=== PATIENT | female | born 1985 | race Caucasian/White ===

== ENCOUNTER 2016-03-22 09:23 | Inpatient (IN) | payer OTHER ==
[~2016-03-22] VITALS: Ht 160 cm; Wt 66.2 kg
[~2016-03-22 09:23] MED LIST: AMOX500C2 PO; OXYC1TAB24 PO; [UNRECOGNIZED DRUG - OTHER] PO
[2016-03-22] MEDS ORDERED: Hemorrhage Kit, Post Partum XX ONE ×2 (10:20→18:45)
[2016-03-22] MEDS ORDERED: Lactated Ringer's 1,000 ML IV PRN (10:20)
[2016-03-22] MEDS ORDERED: fentaNYL-PF 50 mCg/mL 2 mL Inj IVPUSH PRN (10:20)
[2016-03-22] MEDS ORDERED: Oxytocin 10 Unit/mL Inj IM PRN ×2 (10:20→18:45)
[2016-03-22] MEDS ORDERED: Sodium Chloride LOK Flush 10 mL Syringe IVFLUSH PRN (10:20)
[2016-03-22] MEDS ORDERED: Oxytocin 30 Units/500 mL LR 30 UNITS in IV Premix 1 EACH IV PRN ×2 (10:20→18:45)
[2016-03-22] MEDS ORDERED: Carboprost 250 mCg/mL Inj IM PRN ×2 (10:20→18:45)
[2016-03-22] MEDS ORDERED: Methylergonovine 0.2 mg/mL Inj IM PRN ×2 (10:20→18:45)
[2016-03-22 10:33] LABS: Mean Corpuscular Hemoglobin 30.8 pg (27.0-35.0); Mean Corpuscular Volume 90.3 fL (81-100)
[2016-03-22] MEDS ORDERED: fentaNYL 2 mCg/mL-Bupivicaine 0.125% 100 mL Premix EPIDURAL ONE (14:01)
[2016-03-22] MEDS ORDERED: Lactated Ringer's 500 ML IV ONE (14:04)
[2016-03-22] MEDS ORDERED: Phenylephrine/NS-PF 100 mCg/mL 5 mL Syringe IVPUSH PRN (14:05)
[2016-03-22] MEDS ORDERED: Atropine 1 mg/10 mL (Code) Syringe IVPUSH PRN (14:05)
[2016-03-22] MEDS ORDERED: Ondansetron 2 mg/mL 2 mL Inj IVPUSH PRN (14:05)
[2016-03-22] MEDS ORDERED: EPHEDrine Sulfate 50 mg/mL Inj IVPUSH PRN (14:05)
[2016-03-22] MEDS ORDERED: fentaNYL 2 mCg/mL-Bupiv 0.125% 100 ML EPIDURAL SCH (14:05)
--- NOTE | 2016-03-22 14:05 | PCM.HPANE ---
Patient Data Surgeon Admitting Provider:Brittany Woods MD Attending Provider:Brittany Woods MD Primary Care Physician:Nopcp Other Provider: Reason for Visit Early Labor EARLY LABOR Ht/WT & BMI Body Mass Index Allergies Coded Allergies: tramadol (Verified Allergy, Unknown, 03/22/16) seizures hydrocodone (Verified Adverse Reaction, Unknown, N/V, 03/22/16) Diabetes History Hx Diabetes?: No Medications Active Scripts Amoxicillin 500 Mg [id number] Mg PO TID 7 Days Ref 0 Prov:Diony House MD 12/01/15 oxyCODONE-Acetaminophen 5-325 mg 1 Each Tablet1 Tab PO Q6H PRN For Pain #10 TABLET Prov:Diony House MD 12/01/15 Reported Medications [flintstone Vits] No Conflict Check PO DAILY #1 Ref 0 07/28/08 History Hx of Heart Problems?: No Cardiovascular History: Denies:: Congestive Heart Failure Hypertension Hx of Respiratory Problem?: No Respiratory History: Denies:: Tuberculosis Hx Neurologic Problems?: No Hx of GI Problems?: Yes Gastrointestinal History: Positive for:: Heartburn Female Hx: Positive for:: Currently Hx Surgeries?: No Hx Diabetes: No Hx Alcohol Use: NoHx Substance Use: Yes Smoking Status: Current Every Day Smoker Have You Smoked inLast 12 mo: No Stop/Bang Treated for Sleep Apnea?: No Do You Have a CPAP Machine?: No RAE Risk Assessment: Low Risk, <3 Yes Risk Assessment Category Category 1A: Patient has history of documented sleep apnea, and HAS NOT received any narcotic, sedative or anesthesia administration during this stay. Category 1B: Patient has history of documented sleep apnea, and HAS received any narcotic , sedative or anesthesia administration during this stay Category 2: Patient has SUSPECTED Obstructive Sleep Apnea, and HAS received any narcotic , sedative or anesthesia administration during this stay. Category 3: Patient has SUSPECTED Obstructive Sleep Apnea and HAS NOT received narcotic, sedative or anesthesia administration during this stay. Category 4: Outpatient in Procedural Areas with known sleep apnea or who screen positive for High Risk via the STOP/BANG questionnaire. Exam Exam General Appearance: Oriented X3 HEENT/AIRWAY: MP 2 Lungs: Normal Air Movement Heart: Regular Rate/Rhythm Meds/Labs/Diagnostics Labs Test 03/22/16 10:10 White Blood Count 13.2th/mm3 (3.8-10.1) Red Blood Count 4.54mil/mm3 (3.90-5.20) Hemoglobin 14.0g/dL (12.0-15.6) Hematocrit 41.0% (35.0-46.0) Mean Corpuscular Volume 90.3fL (81-100) Mean Corpuscular Hemoglobin 30.8pg (27.0-35.0) Mean Corpuscular Hemoglobin Concent 34.1% (32.0-37.0) Red Cell Distribution Width 13.8% (12.3-15.4) Platelet Count 297bil/L (150-400) Plan Impression Patient chart reviewed, patient interviewed and anesthestic plan with risks, benefits, and alternatives discussed, and informed consent obtained. ASA Physical Status: ASA2 Mod Systemic Disease Anesthetic Plan: Epidural Bene/Risks/Altern/Consents: Yes HP Complete Prior to Induction: Yes Kendrick Bach MD Mar 22, 2016 14:05
[2016-03-22] MEDS: Lactated Ringer's 1,000 ML IV SCH (14:24)
[2016-03-22] MEDS ORDERED: Sodium Chloride LOK Flush 10 mL Syringe IVFLUSH SCH (16:30)
--- NOTE | 2016-03-22 17:55 | PCM.HPOB ---
Subjective Date of Service: Mar 22, 2016 Referring Provider: Admitting Physician: Brittany Woods MD Primary Care Physician: Nopcp Attending Physician: Brittany Woods MD Chief Complaint Term labor History of Present History of Present Illness 31 year-old at 37wks 6days per first trimester ultrasound presenting to the [facility] in active labor with SROM. She is Rh negative and received Rhogam at 28wks. She is GBS negative. OB ultrasound on 02/15/16 showed stable, mild peviectasis. labs: Blood type A Rh (D) type negative Antibody screen negative GBS negative Varicella/rubella immune RPR nonreactive HBsAg negative HepC negative HIV nonreactive Chlamydia/Gonorrhea negative TSH 1.030 HbA1c 5.3 Hgb/Hct 13.3/40.2 JULIO of 04/06/16 per OB Ultrasound on 09/03/15 Past Medical History Obstetrical History: Induced x3 ( #1, 2 and 4) - July 2008 (40w0d) Gynecologic History: Ovarian cyst Medical History: None Surgical History: None Hx Tobacco Use: Yes Smoking Status: Former Smoker Hx Alcohol Use: No Hx Substance Use: No Past Family History Family History Maternal grandmother- cardiovascular disease, arthritis Paternal uncle- cardiovascular disease, diabetes mellitus, mental illness Living Arrangement: with Family Review of Systems ROS All other systems reviewed and negative, except as noted. Medications Home medications None Allergy Coded Allergies: tramadol (Verified Allergy, Unknown, 03/22/16) seizures hydrocodone (Verified Adverse Reaction, Unknown, N/V, 03/22/16) Exam Vital Signs BP 124/72, HR 90, RR 16, temp 36.6 Exam FHR 130 baseline, moderate variability, accelerations present, no decelerations. Category 1 tracing. Constitutional: Well-developed, Well-nourished HEENT: Atraumatic, Mucous Membr Moist/Skene Lungs: Clear to Auscultation Heart: Regular Rate/Rhythm Abdomen: Gravid Extremities: Tenderness/Swelling Noted Neurological/Psychiatric: Alert, Oriented X3 Labs/Diagnostics Labs 03/22/16 10:10: White Blood Count 13.2, Red Blood Count 4.54, Hemoglobin 14.0, Hematocrit 41.0, Mean Corpuscular Volume 90.3, Mean Corpuscular Hemoglobin 30.8, Mean Corpuscular Hemoglobin Concent 34.1, Red Cell Distribution Width 13.8, Platelet Count 297 Lab/Diagnostic Information labs: Blood type A Rh (D) type negative Antibody screen negative GBS negative Varicella/rubella immune RPR nonreactive HBsAg negative HepC negative HIV nonreactive Chlamydia/Gonorrhea negative TSH 1.030 HbA1c 5.3 Hgb/Hct 13.3/40.2 JULIO of 04/06/16 per OB Ultrasound on 09/03/15 Maternal Blood Type: A Hx Rho(D) Immune Globulin: No Antibody Screen: negative Group B Strep Results: Negative Rubella: Immune OB Intrapartum Assessment/Plan Assessment 31 year-old at 37wks 6days who presented in early labor with SROM. Anticipate . Pain Evaluation: Adequate Pain Control Post plan: Continue routine post care Attending Statement The patient was seen and examined together with Dr. Krause and I agree with the history, exam and plan as outlined in the note above. She is RH negative and will need rhogam eval Sherly Molina DO Mar 22, 2016 10:49 Brittany Woods MD Mar 30, 2016 09:30
[2016-03-22] MEDS ORDERED: Lactated Ringer's 1,000 ML IV SCH (18:45)
[2016-03-22] MEDS ORDERED: Witch Hazel-Glycerin Pads TOPICAL PRN (18:45)
[2016-03-22] MEDS ORDERED: HYDROcodone-APAP 5-325 mg Tablet PO PRN (18:45)
[2016-03-22] MEDS ORDERED: LANOlin HPA 7 Gm Ointment TOPICAL PRN (18:45)
[2016-03-22] MEDS ORDERED: Benzocaine (Dermoplast) 20% 60 Gm Spray TOPICAL PRN (18:45)
--- NOTE | 2016-03-22 20:41 | OP ---
[address] [address] OPERATIVE REPORT PATIENT: ARPIT ALANIZ : 1985 MR#: [id number] ADMIT: 03/22/2016 JOB ID: [id number] DATE OF SURGERY: 03/22/2016 PREOPERATIVE DIAGNOSIS(ES): 1. A 37+6 week intrauterine presenting with spontaneous rupture of membranes. 2. Rh-negative status. 3. pyelectasis. POSTOPERATIVE DIAGNOSIS(ES): 1. A 37+6 week intrauterine presenting with spontaneous rupture of membranes. 2. Rh-negative status. 3. pyelectasis. PROCEDURE PERFORMED: Spontaneous vaginal delivery. SURGEON: Brittany Woods MD. ANESTHESIA: Epidural. ESTIMATED BLOOD LOSS: 300 cc. FLUID REPLACEMENT: Crystalloid in labor. COMPLICATIONS: None apparent. FINDINGS: Live-born female born on March 22, 2016 born at 1815 hours, weighing 5 pounds 7 ounces or 2472 g with Apgars of 9 at one minute, 9 at five minutes. COMPLICATIONS: None apparent. INDICATIONS: This is a 31-year-old, G5, P1-0-3-1 female who presented at 37+6 weeks gestational age with an EDC of March 09, 2016 who presents to the Center complaining of rupture of membranes. She was checked and noted to be 3 cm dilated, with ROM plus testing so she was admitted. laboratory data showed blood type A negative, antibody screen negative, rubella immune, varicella immune, hep B surface antigen negative, RPR negative, HIV negative, GBS negative. She began tiffany infrequently on her own and artificial rupture of membranes of small forebag was completed around noon on the . Following this, she then had an epidural placed for pain relief inserted to contract more regularly. She progressed to complete around 1730 hours. At this point, she began to push, bringing the infant's vertex to the perineum. PROCEDURE: The patient was noted to be complete and pushing so she was placed in dorsal lithotomy position, prepped and draped in usual sterile fashion for delivery. She pushed and the head delivered spontaneously in the JARAD position over an intact perineum. Nuchal cord was checked and none was noted. The anterior shoulder delivered easily, followed by the posterior shoulder. The remainder of the was then easily delivered. The cord was then clamped and cut after a 60 second cord clamping delay, and the infant was placed on the mother's abdomen. Cord blood was then obtained. Pitocin was then started per protocol with 30 units of Pitocin placed into the IV bag to firm the uterus. The placenta then delivered intact spontaneously and was passed off the table. The uterus was noted to be firm on bimanual massage and there were no remaining membranes palpated within the uterus. Examination of the cervix and vaginal vault did not reveal any lacerations. Examination of the perineum showed a small first-degree laceration. There was also noted to be a right labial laceration. These were both repaired with 4-0 Vicryl. The right labial laceration was repaired with 4-0 Vicryl in a running, nonlocking fashion and the first-degree laceration was repaired with 4-0 Vicryl in a running, nonlocking fashion with reapproximation of the subcu with the same suture. The patient tolerated this procedure well, recovered in labor and delivery with her . All sponge, needle, and instrument counts were correct at the completion of the procedure.
[2016-03-23 07:37] LABS: Mean Corpuscular Hemoglobin 30.5 pg (27.0-35.0); Mean Corpuscular Volume 89.9 fL (81-100)
[2016-03-23] MEDS: Lactated Ringer's 1,000 ML IV SCH (07:58)
[2016-03-23] MEDS: Ascorbic Acid 500 mg Tablet PO SCH ×2 (08:43→18:56)
--- NOTE | 2016-03-23 09:27 | PCM.PNOBPP ---
Subjective Date of Service Mar 23, 2016 Post : Spontaneous Vaginal Delivery Visit History 31 year-old now P2 who presented at 37wks 6days per first trimester ultrasound in active labor and SROM. She is Rh negative and received Rhogam at 28wks. GBS negative and received antibiotics at time of delivery. OB ultrasound on 02/15/16 showed stable, mild peviectasis. UDS on admission positive for amphetamine and cannabinoids. . Subjective Patient is resting comfortably this morning. Pain is well controlled and she is ambulating and voiding without difficulty. Lochia is normal. Lochia: Normal Pain Management: PO pain meds Gastrointestinal: Good Appetite, No N/V Postop Activity: Ambulating Independently Labs Blood type A Rh (D) type negative Antibody screen negative GBS negative Varicella/rubella immune RPR nonreactive HBsAg negative HepC negative HIV nonreactive Chlamydia/Gonorrhea negative TSH 1.030 HbA1c 5.3 Hgb/Hct 13.3/40.2 JULIO of 04/06/16 per OB Ultrasound on 09/03/15 . Group B Strep Results: Negative Rubella: Immune Blood Type: A RH Type: Positive Labs Laboratory Tests 03/22/16 19:22: Hold Purple Top Tube Received 03/23/16 07:00: White Blood Count 10.7, Red Blood Count 4.07, Hemoglobin 12.4, Hematocrit 36.6, Mean Corpuscular Volume 89.9, Mean Corpuscular Hemoglobin 30.5, Mean Corpuscular Hemoglobin Concent 33.9, Red Cell Distribution Width 13.4, Platelet Count 252 Exam Vital Signs Vital Signs temp 37.0, BP 127/85, HR 72, RR 16 Vital Signs: VS reviewed, stable Exam Abdomen: Fundus firm, Abdomen appropriately tender : Voiding without difficulty Extremities: No tenderness/swelling Lungs: Clear to Auscultation Heart: Regular Rate/Rhythm OB Post Assessment/Plan Assessment 31 year-old now P2 on day after at 37wks 6days. Now with elevated blood pressure and a UDS positive for amphetamines and cannabinoids. Problems: (1) Spontaneous vaginal delivery Plan: -Encourage , continue support/teaching -Continue PO pain meds as needed -Close BP monitoring -Anticipate discharge later today or tomorrow -[facility]. Status: Acute ICD Code: O80 (2) Positive urine drug screen Plan: -Patient denies prescription medication to account for positive UDS -Will consult social work Status: Acute ICD Code: R82.5 Pain Evaluation: Adequate Pain Control Post plan: Continue routine post care Attending Statement The patient was seen and examined and I agree with the history, exam and plan as outlined in the note above. Social work is following for UDS with amphetamines. She is RH negative, rhogam workup is still pending at this time. BP improved this AM, continue to monitor. Sherly Krause DO Mar 23, 2016 09:27 Brittany Woods MD Mar 30, 2016 09:39
--- NOTE | 2016-03-23 09:44 | NUR ---
Social Work Note: Referral Received SCOTTY Richards, AAC
--- NOTE | 2016-03-23 10:56 | NUR ---
Social Work Note D/A: Pt is a 31 year old female who gave to BG on 03/22/2016. Pt and BG had positive UDS for amphetamines and THC at the time of delivery. Pt reported that she last used THC about three weeks ago. Pt adamantly denied, knowingly using amphetamines. Pt reported that she and FOB, Johnny Rosa, currently reside with their previous child in a room at the [facility] in [facility]. FOB reported that he currently smokes cigarettes but is planning to quit for BG's health. Pt explained that they were looking for more permanent housing but had not been able to find any prior to delivery. Pt indicated that they do have one previous child, a seven year old male, who is currently staying with the maternal grandmother while Pt and FOB are in the hospital with BG. Pt indicated no previous CPS involvement. Pt reported that she is enrolled in [employer] and is receiving food stamps. FOB reported that he works as a fabricator and is Pt's primary source of financial support. Pt indicated that she and FOB have a large and supportive network of friends and family in the area that is available to assist in caring for BG if needed. Pt indicated that she has everything she will need to care for BG at discharge including a bassinet and car seat. Pt reported no history of DV, mental illness or post depression. Pt reported no current legal troubles. Pt reported no additional needs prior to discharge. P: Pt reported that she has a strong support network. Pt is enrolled in appropriate social service technician. Pt and BG both had a UDS that was positive for amphetamines and THC. Pt admitted to THC use but adamantly denied amphetamine use. HOSPITAL STAFF PHARMACIST explained that the positive UDS results would prompt a report to CPS that would possible screen in for further investigation due to the amphetamines. Pt and FOB indicated that they understood. direct support staff reported that Pt and family have been appropriate and affectionate with BG while in the hospital. direct support staff reported that BG exhibited insufficient suck and would need to be watched closely for feeding and weight loss. direct support staff reported no additional concerns. HOSPITAL STAFF PHARMACIST called CPS and spoke with Murali Mccarty who indicated that he believed that this case would likely screen in for additional follow up by CPS. Mikayla Purdy, SCOTTY, AAC
--- NOTE | 2016-03-24 08:31 | PCM.PNOBPP ---
Subjective Date of Service Mar 24, 2016 Post : Spontaneous Vaginal Delivery Visit History 31 year-old now P2 from [facility] at 37w6d. complicated by mild peviectasis on OB ultrasound 02/15/16. UDS on admission positive for amphetamine and cannabinoids. Subjective Patient is doing well this morning after she was able to get some rest. Overnight she was increasingly anxious and BP remained elevated, she stated that she just wanted to go outside and get some fresh air. She later stated that although she quit smoking tobacco she was stressed/anxious and thought it might help. She endorses anxiety and thought this might be contributing to her elevated blood pressure. She had a UDS positive for amphetamines and cannabis but continues to deny use of amphetamine. Today pain is well controlled, lochia normal, and she is voiding and ambulating without difficulty. Lochia: Normal Pain Management: PO pain meds Gastrointestinal: Good Appetite, No N/V Postop Activity: Ambulating Independently Labs Blood type A Rh (D) type negative Antibody screen negative GBS negative Varicella/rubella immune RPR nonreactive HBsAg negative HepC negative HIV nonreactive Chlamydia/Gonorrhea negative TSH 1.030 HbA1c 5.3 Hgb/Hct 13.3/40.2 JULIO of 04/06/16 per OB Ultrasound on 09/03/15 Group B Strep Results: Negative Rubella: Immune Blood Type: A RH Type: Positive Labs Laboratory Tests 03/22/16 19:22: Hold Purple Top Tube Received 03/23/16 07:00: White Blood Count 10.7, Red Blood Count 4.07, Hemoglobin 12.4, Hematocrit 36.6, Mean Corpuscular Volume 89.9, Mean Corpuscular Hemoglobin 30.5, Mean Corpuscular Hemoglobin Concent 33.9, Red Cell Distribution Width 13.4, Platelet Count 252 Labs Blood type A Rh (D) type negative Antibody screen negative GBS negative Varicella/rubella immune RPR nonreactive HBsAg negative HepC negative HIV nonreactive Chlamydia/Gonorrhea negative TSH 1.030 HbA1c 5.3 Hgb/Hct 13.3/40.2 JULIO of 04/06/16 per OB Ultrasound on 09/03/15 Exam Vital Signs Vital Signs temp 36.9, BP 134/96, HR 78 Vital Signs: VS reviewed, stable Exam Abdomen: Fundus firm, Abdomen soft, Abdomen appropriately tender : Voiding without difficulty Extremities: No tenderness/swelling Lungs: Clear to Auscultation Heart: Regular Rate/Rhythm OB Post Assessment/Plan Assessment 31 year-old now P2 on day after at 37wks 6days. Now with elevated blood pressure and a UDS positive for amphetamines and cannabinoids. Problems: (1) Spontaneous vaginal delivery Plan: -Encourage , continue support/teaching -Continue PO pain meds as needed -Close BP monitoring -Anticipate discharge later today or tomorrow -Follow up at [facility] in 2wks. Status: Acute ICD Code: O80 (2) Positive urine drug screen Plan: -Patient denies prescription medication to account for positive UDS -Social work consulted and following. Call to CPS placed as patient does not have custody of her other child, age 7 and she is currently living in a motel. -CPS plans to evaluate Status: Acute ICD Code: R82.5 Pain Evaluation: Adequate Pain Control Post plan: Continue routine post care Plan: The patient was seen and examined together with Sherly Camacho DO on and I agree with the history, exam and plan as outlined in the note above. Sherly Krause DO Mar 24, 2016 07:10 Jairon Choudhury MD Mar 24, 2016 21:58
[2016-03-24] MEDS: Ascorbic Acid 500 mg Tablet PO SCH (08:34)
[2016-03-24] MEDS ORDERED: DOCU-41 PO (08:34)
[2016-03-24] MEDS ORDERED: IBUP800T28 PO (08:34)
[2016-03-24] MEDS ORDERED: FERR-74 PO (08:34)
[2016-03-24] MEDS ORDERED: Ascorbic Acid PO (08:34)
--- NOTE | 2016-03-24 08:38 | PCM.DIOB ---
Obstetrical Disch Instruction Date of Service: Mar 24, 2016 Dates of Hospitalization Date of Hospital Admission Mar 22, 2016 at 09:54 Providers Admitting Physician: Brittany Woods MD Primary Care Physician: Nopcp Attending Physician: Brittany Woods MD Discharge Diagnosis Discharge Diagnosis Term with normal spontaneous vaginal delivery Problems: (1) Spontaneous vaginal delivery Status: Acute ICD Code: O80 (2) Positive urine drug screen Status: Acute ICD Code: R82.5 Diet Discharge Diet: No restrictions Activity Discharge Activity-General: Pelvic Rest for 6 weeks Additional Instructions Discharge Instructions Continue your vitamin. Please take the iron and vitamin c together for your anemia. Iron can give you constipation so you have also been given a prescription for docusate to keep you regular. Be sure to follow up next week at [facility] to have your blood pressure checked. You will also need to follow up at [facility] in 4-6 weeks for post - visit. Pelvic rest for 6 weeks (nothing per vagina including intercourse, tampons) If you have a fever greater than 100.4, please call [facility]. There is always someone job honer to talk to. If you have an increase in bleeding, call [facility]. If you have a lot of bleeding suddenly, especially if you have symptoms of dizziness & weakness with it, get emergency help. When you see [facility] in two weeks, you will be informed of the results of all the labs. If you start experiencing extreme depression, especially if you feel that you are a danger to yourself or your family, seek emergency help. You have been through a lot -- BE SURE TO TAKE CARE OF YOURSELF. Follow Up Plan Follow-up Provider (F9): [facility] Call your provider for: Fever or Chills, Shortness of breath, Heavy vaginal bleeding, Epigastric pain, Excessive constipation Sherly Krause DO Mar 24, 2016 08:38
--- NOTE | 2016-03-24 08:48 | PCM.DC.OB ---
Obstetrical Discharge Summary Date of Service Mar 24, 2016 Date of hospital admission Mar 22, 2016 at 09:54 Date of Discharge: Mar 24, 2016 Providers Admitting Physician: Brittany Woods MD Primary Care Physician: Josafat Attending Physician: Brittany Woods MD Diagnosis at Time of Discharge Term w/ Positive urine drug screen Problems: (1) Spontaneous vaginal delivery Status: Acute ICD Code: O80 (2) Positive urine drug screen Status: Acute ICD Code: R82.5 Brief History and Physical: 31 year-old now P2 from at 37w6d. complicated by mild peviectasis on OB ultrasound 02/15/16. UDS on admission positive for amphetamine and cannabinoids. Physical Exam: Vitals: temp 36.9, BP 134/96, HR 78 General: AOx3, no acute distress, cooperative Abdomen: Fundus firm, Abdomen soft, Abdomen appropriately tender : Voiding without difficulty Extremities: No tenderness/swelling Lungs: Clear to Auscultation Heart: Regular Rate/Rhythm . Hospital Course: 31 year-old who presented to the [facility] at 37wks 6days in active labor with SROM. her BPs were elevated with a max SBP in the 180s and DBP 100. Patient reported increasing anxiety and UDS was positive for amphetamines and cannabinoids. On the evening of day #1 she received a one time 0.5mg dose of IV Ativan for anxiety after which her BP improved. She was discharged on day #2 normotensive and in stable condition. Social work is ongoing and CPS has been notified. labs: Blood type A Rh (D) type negative Antibody screen negative GBS negative Varicella/rubella immune RPR nonreactive HBsAg negative HepC negative HIV nonreactive Chlamydia/Gonorrhea negative TSH 1.030 HbA1c 5.3 Hgb/Hct 13.3/40.2 JULIO of 04/06/16 per OB Ultrasound on 09/03/15 OB ultrasound on 02/15/16 showed stable, mild peviectasis. . ([flintstone Vits]) PO DAILY (Reported) ([Ascorbic Acid]) 500 MG TABLET 500 MG PO DAILY Prescribed by: FLAVIO LOVING DO Amoxicillin (Amoxicillin) 500 Mg Capsule 500 MG PO TID Prescribed by: ZACHARY MORGAN MD Docusate Sodium (Colace) 100 Mg Capsule 100 MG PO BID Prescribed by: FLAVIO LOVING DO Ferrous Sulfate (Feosol) 325 Mg Tablet 325 MG PO DAILY Prescribed by: FLAVIO LOVING DO Ibuprofen (Ibuprofen) 800 Mg Tablet 800 MG PO Q8H PRN PRN For Pain Prescribed by: FLAVIO LOVING DO oxyCODONE-Acetaminophen 5-325 mg (oxyCODONE-Acetaminophen 5-325 mg) 1 Each Tablet 1 TAB PO Q6H PRN PRN For Pain Prescribed by: ZACHARY MORGAN MD Follow-up plan [facility] up at [facility] next week for BP check. follow up at [facility] in 6wks. Recommend establishing care with PCP. Discharge Diet: No restrictions Discharge Activity-General: Pelvic Rest for 6 weeks Patient instructions Continue your vitamin. Please take the iron and vitamin c together for your anemia. Iron can give you constipation so you have also been given a prescription for docusate to keep you regular. Be sure to follow up next week at [facility] to have your blood pressure checked. You will also need to follow up at [facility] in 4-6 weeks for post - visit. Pelvic rest for 6 weeks (nothing per vagina including intercourse, tampons) If you have a fever greater than 100.4, please call [facility]. There is always someone production statistical clerk to talk to. If you have an increase in bleeding, call [facility]. If you have a lot of bleeding suddenly, especially if you have symptoms of dizziness & weakness with it, get emergency help. When you see [facility] in two weeks, you will be informed of the results of all the labs. If you start experiencing extreme depression, especially if you feel that you are a danger to yourself or your family, seek emergency help. You have been through a lot -- BE SURE TO TAKE CARE OF YOURSELF. Flavio Loving DO Mar 24, 2016 08:39
[2016-03-24 10:48] VITALS: BP 134/89; PULSE 82; RESP 18
== END 2016-03-24 11:00 | disposition home or self-care (01) | DRG 775 ==
LOC: FBCO 09:23 → FBC 09:54
PROVIDERS: ADMIT Obstetrics & Gynecology; ATTEND Obstetrics & Gynecology
PROC: 10E0XZZ Delivery of Products of Conception, External Approach (ICD-10-PCS; principal; 2016-03-22)
PROC: 0UQMXZZ Repair Vulva, External Approach (ICD-10-PCS; 2016-03-22)
PROC: 0HQ9XZZ Repair Perineum Skin, External Approach (ICD-10-PCS; 2016-03-22)
PROC: 10907ZC Drainage of Amniotic Fluid, Therapeutic from Products of Conception, Via Natural or Artificial Opening (ICD-10-PCS; 2016-03-22)
DX: O70.0 First degree perineal laceration during delivery (principal); O99.324 Drug use complicating childbirth; O71.82 Other specified trauma to perineum and vulva; O99.345 Other mental disorders complicating the puerperium; F15.90 Other stimulant use, unspecified, uncomplicated; F12.90 Cannabis use, unspecified, uncomplicated; F41.9 Anxiety disorder, unspecified; Z37.0 Single live birth; Z3A.37 37 weeks gestation of pregnancy